=== PATIENT | female | born 1935 | race Caucasian/White ===

== ENCOUNTER 2016-12-06 08:46 | Day surgery (SDC) | payer MEDICARE, OTHER ==
[~2016-12-06 08:46] MED LIST: DICL-86 PO; IRBE150T51 PO; META800 PO
== END 2016-12-06 13:47 | disposition home or self-care (01) ==
LOC: HRAD 08:46 → HRIP 08:47 → HRAD 13:47
PROVIDERS: ATTEND Internal Medicine
DX: J90 Pleural effusion, not elsewhere classified (principal); I10 Essential (primary) hypertension; Z53.09 Procedure and treatment not carried out because of other contraindication
CPT/HCPCS: 36415; 82947; 83615; 84155

== ENCOUNTER 2016-12-09 09:41 | Day surgery (SDC) | payer MEDICARE, OTHER ==
[2016-12-09 10:29] VITALS: BP 124/77; PULSE 98; RESP 16; TEMP 97; O2SAT 96
--- NOTE | 2016-12-09 11:11 | PD.RAD ---
Post US Procedure Prog Note Pre Procedure Diagnosis: (1) Pleural effusion Post Procedure Diagnosis: (1) Pleural effusion Procedure Date: Dec 09, 2016 Supervising Radiologist: Alex Seals Proceduralist/Assist: Liz Farfan RDMS Estimated blood loss: none Anesthesia: Local Plan of Activity Patient to Unit: ROPU Patient Condition: Good See PACS Report for procedural detail/treatment Drainage Procedure Procedure 1 Imaging Guidance: Ultrasound Side: Left Procedure Type: Thoracentesis Drainage: Suction Fluid Removal (CCs): 700 Fluid Description: Cloudy, Yellow Plan to ropu then to floor Alex Seals MD Dec 09, 2016 11:11
[2016-12-09 11:20] VITALS: BP 128/60; PULSE 85; RESP 18; TEMP 98.1; O2SAT 99
[2016-12-09 11:35] VITALS: BP 137/71; PULSE 98; RESP 18; O2SAT 99
--- NOTE | 2016-12-09 11:41 | RADRPT ---
EXAM DATE/TIME: 12/09/2016 11:13 [facility] COMPARISON: No previous studies available for comparison. INDICATIONS : Evaluate for pneumothorax post procedure MEDICAL HISTORY : Hypertension. Respiratory disorders. Pleural effusion. SURGICAL HISTORY : Hysterectomy. ENCOUNTER: Initial ACUITY: 4 - 6 days PAIN SCORE: 3/10 LOCATION: Left chest FINDINGS: Upright expiratory view of the chest demonstrates a normal-sized cardiac silhouette with calcificatio n of the aorta. There is no pneumothorax following recent left thoracentesis. There is slight bluntin g of left costophrenic sulcus. There is hazy opacity at the inferior right hemithorax. Bones and soft tissues demonstrate no acute finding. There is leftward convex curvature of the thoracic/lumbar spin e.CONCLUSION: 1. No pneumothorax identified following left thoracentesis. There is trace left pleural fluid remaini ng along with suspected atelectasis. 2. There is a small right pleural effusion. Alex Seals MD on December 09, 2016 at 11:34 Board Certified Radiologist. This report was verified electronically.
--- NOTE | 2016-12-09 11:42 | RADRPT ---
EXAM DATE/TIME: 12/09/2016 10:23 [facility] COMPARISON: No previous studies available for comparison. INDICATIONS : Left pleural effusion. MEDICAL HISTORY : Hypertension. Respiratory disorders. Pleural effusion. SURGICAL HISTORY : Hysterectomy. ENCOUNTER: Initial ACUITY: 4 - 6 days PAIN SCORE: 3/10 LOCATION: Left chest FLUID: Total volume of 700 cc of cloudy, yellow fluid was removed. Fluid was sent to lab for ordered studies. TECHNIQUE: 1. Ultrasound guidance for thoracentesis. 2. Thoracentesis. The risks, benefits, and alternatives to ultrasound guided thoracentesis were explained to the patien t in lay simple terms, including the risk of bleeding and infection. Written and verbal informed con sent was obtained. Appropriate area for thoracentesis was marked under ultrasound guidance with the patient in the uprig ht position. Overlying skin was prepped and draped in the usual sterile fashion and with local anest hetic, a dermatotomy was made with an 11 blade scalpel. A 6 Maltese thoracentesis catheter was placed in the pleural space and fluid was removed. Catheter was then removed and a sterile dressing applie d. There were no immediate complications. The patient tolerated the procedure well and the left the ultrasound suite in stable condition. Chest radiograph is to be obtained. CONCLUSION: Uncomplicated ultrasound guided left thoracentesis. Alex Seals MD on December 09, 2016 at 11:39 Board Certified Radiologist. This report was verified electronically.
[2016-12-09 13:41] LABS: PLEURAL FLUID LYMPHS 59 %
[2016-12-10 07:11] LABS: BODY FLUID LDH 110 U/L (()); BODY FLUID LDH SOURCE PLEURAL (())
== END 2016-12-09 12:05 | disposition home or self-care (01) ==
LOC: HRAD 09:41 → HRIP 09:43 → HRAD 12:05
PROVIDERS: ATTEND Internal Medicine
DX: J90 Pleural effusion, not elsewhere classified (principal)
CPT/HCPCS: 32555; 71010; 83615; 87015; 87116; 87206; 88112; 88305; 89051; C1729

== ENCOUNTER 2016-12-10 09:41 | Day surgery (SDC) | payer MEDICARE, OTHER ==
[2016-12-10 10:04] VITALS: BP 124/85; PULSE 81; RESP 18; TEMP 97.6; O2SAT 94
--- NOTE | 2016-12-10 10:29 | RADRPT ---
EXAM DATE/TIME: 12/10/2016 10:08 [facility] COMPARISON: CHEST EXPIRATION ONLY, December 09, 2016, 11:13. INDICATIONS : Evaluate for pneumothorax. Pt. c/o shortness of breath and tightness in chest. MEDICAL HISTORY : Hypertension. Respiratory disorders. Pleural effusion. SURGICAL HISTORY : Hysterectomy. Left Thoracentesis on 12/09/16. ENCOUNTER: Initial ACUITY: 2 days PAIN SCORE: 0/10 LOCATION: Left chest FINDINGS: A single frontal expiratory view of the chest was performed. The lungs are symmetrically aerated and clear. No evidence of pneumothorax. Mediastinal structures are in the midline. The cardio-mediastinal contours and bronchopulmonary markings are unremarkable for an expiratory exam . Osseous structures are intact. CONCLUSION: There is no pneumothorax following left thoracentesis. Ghulam Malone MD FACR on December 10, 2016 at 10:27 Board Certified Radiologist. This report was verified electronically.
== END 2016-12-10 11:05 | disposition home or self-care (01) ==
LOC: HROP 09:41 → HRIP 09:43 → HROP 11:05
PROVIDERS: ATTEND Radiology Body Imaging
DX: R06.02 Shortness of breath (principal); R07.89 Other chest pain; J90 Pleural effusion, not elsewhere classified; I10 Essential (primary) hypertension; Z98.890 Other specified postprocedural states
CPT/HCPCS: 71010; G0463; 99212